=== PATIENT | female | born 1960 | race African-American/Black ===

== ENCOUNTER 2016-04-19 10:07 | Outpatient (CLI) | payer BC | END 2016-04-19 10:08 | disposition home or self-care (01) | DX: Z12.31 Encounter for screening mammogram for malignant neoplasm of breast (principal) ==

== ENCOUNTER 2016-05-01 08:11 | Outpatient (CLI) | payer BC | END 2016-05-01 08:12 | disposition home or self-care (01) | DX: Z12.2 Encounter for screening for malignant neoplasm of respiratory organs (principal); Z72.0 Tobacco use ==

== ENCOUNTER 2016-05-08 10:20 | Outpatient (CLI) | payer BC | END 2016-05-08 10:21 | disposition home or self-care (01) | DX: M17.0 Bilateral primary osteoarthritis of knee (principal) ==

== ENCOUNTER 2016-05-12 07:32 | Day surgery (SDC) | payer BC ==
[2016-05-12] MEDS ORDERED: LACTATED RINGERS 1,000 ML IV ONE (08:18)
[2016-05-12] MEDS ORDERED: SCOPOLAMINE PATCH TOP ONE ×2 (08:19→08:22)
[2016-05-12] MEDS ORDERED: PROPOFOL 200 MG/20 ML VIAL IVP ONE (09:00)
[2016-05-12] MEDS ORDERED: LIDOCAINE 1% 50 ML MDV SUBQ ONE (09:00)
== END 2016-05-12 07:33 | disposition home or self-care (01) ==
PROC: 0DBL8ZX Excision of Transverse Colon, Via Natural or Artificial Opening Endoscopic, Diagnostic (ICD-10-PCS; 2016-05-12)
PROC: 0DBK8ZX Excision of Ascending Colon, Via Natural or Artificial Opening Endoscopic, Diagnostic (ICD-10-PCS; principal; 2016-05-12 09:00)
DX: Z12.11 Encounter for screening for malignant neoplasm of colon (principal); D12.3 Benign neoplasm of transverse colon; Z80.49 Family history of malignant neoplasm of other genital organs; F17.200 Nicotine dependence, unspecified, uncomplicated; I10 Essential (primary) hypertension; K57.30 Diverticulosis of large intestine without perforation or abscess without bleeding; K64.8 Other hemorrhoids; K21.9 Gastro-esophageal reflux disease without esophagitis
CPT/HCPCS: 45380; J3490; J7120

== ENCOUNTER 2018-12-29 13:19 | Outpatient (CLI) | payer BC ==
[~2018-12-29 13:19] MED LIST: ALBUTEROL NEB 2.5 MG/3 ML INH SCH
== END 2018-12-29 13:20 | disposition home or self-care (01) ==
LOC: RT 13:19
PROVIDERS: ATTEND Internal Medicine
DX: R05 Cough (principal); Z72.0 Tobacco use
CPT/HCPCS: 94010

== ENCOUNTER 2019-01-13 13:21 | Outpatient (CLI) | payer BC ==
--- NOTE | 2019-01-13 14:27 | Mammography Report ---
Reason: SCREENING MAMMO Procedure Date: 01/13/2019 Accession Number: [id number] / [id number] Procedure: MGN - Screening Mammo Dig Bilat CPT Code: FULL RESULT: EXAM: Screening Mammo Dig Bilat DATE: 01/13/2019 1:47 PM CLINICAL HISTORY: Screening TECHNIQUE: (B) - Bilateral CC and MLO views were obtained. COMPARISON: 04/19/2016, 11/15/2013 PARENCHYMAL PATTERN: (A) - The breasts demonstrate scattered fibroglandular densities bilaterally. FINDINGS: There is a small spiculated mass in the left breast, posterior one third, approximately 3:00 position. No other focal abnormality. IMPRESSION: Incomplete examination. BI-RADS category 0. RECOMMENDATION: (ADDMU) - Additional views using both Mammography and Ultrasound recommended. BI-RADS CATEGORY: (0) - Incomplete Examination - need additional evaluation. STANDARD QUALIFYING STATEMENTS: 1. This examination was not reviewed with the aid of Computer-Aided Detection (CAD). 2. A negative or benign imaging report should not preclude biopsy if clinically suspicious findings are present. 3. Dense breasts may obscure an underlying neoplasm. 4. This examination was reviewed without the aid of 3D breast imaging (tomosynthesis).
== END 2019-01-13 13:22 | disposition home or self-care (01) ==
LOC: DI.N 13:21
PROVIDERS: ATTEND Internal Medicine
DX: Z12.31 Encounter for screening mammogram for malignant neoplasm of breast (principal); R92.8 Other abnormal and inconclusive findings on diagnostic imaging of breast
CPT/HCPCS: 77067

== ENCOUNTER 2019-01-20 12:14 | Outpatient (CLI) | payer BC ==
--- NOTE | 2019-01-20 16:21 | Ultrasound Report ---
Reason: ABNORMAL MAMMO LT BREAST Procedure Date: 01/20/2019 Accession Number: [id number] / [id number] Procedure: US - Breast Unilateral Limited CPT Code: FULL RESULT: EXAM: Diagnostic Dig LT, Breast Unilateral Limited DATE: 01/20/2019 12:56 PM CLINICAL HISTORY: Recall from recent screening for left breast finding. No reported personal or family history of breast cancer. TECHNIQUE: (L) - Left CC, ML and MLO views were obtained. Real-time targeted ultrasound was performed. [employer] images were stored. COMPARISON: 01/13/2019 through 11/15/2013 PARENCHYMAL PATTERN: (A) - The breasts demonstrate scattered fibroglandular densities bilaterally. FINDINGS: Left breast: Additional images confirm a 5 mm irregular mass in the posterior lower outer quadrant, corresponding to finding recalled from screening. No suspicious calcifications or areas of distortion. Targeted ultrasound at 4:00 2 cm from the nipple shows the sonographic correlate as an irregular hypoechoic, avascular mass with angular margins measuring 5 x 3 x 3 mm. Survey of the axilla shows normal morphology lymph nodes. IMPRESSION: Suspicious findings. BI-RADS category 4. 5 mm indeterminate mass 4:00 10 cm from the nipple, left breast. RECOMMENDATION: (BIOPSY) - ultrasound-guided biopsy and marker placement is recommended. Biopsy scheduling was facilitated the time of this imaging appointment. BI-RADS CATEGORY: (4) - Suspicious. STANDARD QUALIFYING STATEMENTS: 1. This examination was not reviewed with the aid of Computer-Aided Detection (CAD). 2. A negative or benign imaging report should not preclude biopsy if clinically suspicious findings are present. 3. Dense breasts may obscure an underlying neoplasm. 4. This examination was reviewed with the aid of 3D breast imaging (tomosynthesis).
== END 2019-01-20 12:15 | disposition home or self-care (01) ==
LOC: DI 12:14
PROVIDERS: ATTEND Internal Medicine
DX: R92.8 Other abnormal and inconclusive findings on diagnostic imaging of breast (principal)
CPT/HCPCS: 76642

== ENCOUNTER 2019-01-27 09:37 | Outpatient (CLI) | payer BC ==
[2019-01-27] MEDS ORDERED: BUPIVACAINE 0.5%-EPI 1:200000 PF 10 ML VIAL ONE (09:53)
[2019-01-27] MEDS ORDERED: BUFFERED LIDOCAINE 10 ML SYRINGE ONE (09:53)
[2019-01-27] MEDS ORDERED: BUFFERED LIDOCAINE 10 ML SYRINGE IU ONE (12:39)
[2019-01-27] MEDS ORDERED: BUPIVACAINE 0.5%-EPI 1:200000 PF 10 ML VIAL SUBQ ONE (12:39)
--- NOTE | 2019-01-27 14:52 | Ultrasound Report ---
Reason: L BREAST NODULE Procedure Date: 01/27/2019 Accession Number: [id number] / [id number] Procedure: US - Biopsy Breast Core CPT Code: FULL RESULT: EXAM: Biopsy Breast Core DATE: 01/27/2019 11:28 AM CLINICAL HISTORY: L BREAST NODULE COMPARISON: PROCEDURE: Ultrasound-guided needle biopsy left breast mass. CLINICAL DATA: Targeted mass measuring 5 mm with irregular margins in the 4 o'clock axis of the left breast. Informed consent was obtained. Using standard aseptic technique, both 1% buffered lidocaine was injected into the left breast for local anesthesia. A small ted was made in the skin with a #11 blade. A 12-gauge Super Clean Jobsite vacuum-assisted device was used to obtain 3 specimens. A specialized biopsy marker clip was placed into the biopsy cavity under ultrasound guidance. The patient was taken to separate mammography machine and a two-view digital mammography was performed to verify the clip placement and any complications. The mammography showed concordant clip placement. The wound was dressed and ice applied. The patient was observed for approximately 15 minutes, then was discharged from diagnostic imaging Department in good condition following instructions on wound care and obtaining biopsy results. The patient is scheduled to receive the biopsy results from the referring physician. The tissue was sent for histologic analysis. IMPRESSION: Ultrasound-guided biopsy of the left breast. AN ADDENDUM WILL BE MADE TO THIS REPORT WHEN PATHOLOGY IS REVIEWED TO ESTABLISH CONCORDANCE. RADIA
== END 2019-01-27 09:38 | disposition home or self-care (01) ==
LOC: DI 09:37
PROVIDERS: ATTEND Internal Medicine
DX: D24.2 Benign neoplasm of left breast (principal)
CPT/HCPCS: 19083

== ENCOUNTER 2020-05-17 10:14 | Outpatient (CLI) | payer BC ==
--- NOTE | 2020-05-18 08:27 | Mammography Report ---
BILATERAL DIGITAL SCREENING MAMMOGRAM 3D/2D: 05/17/2020 CLINICAL: Routine screening. Comparison is made to exams dated: 01/27/2019 mammogram, 01/20/2019 mammogram, 01/13/2019 mammogram, a nd 04/19/2016 mammogram - [facility]. There are scattered fibroglandular elements in both breasts. There is a biopsy clip in the left breast. No significant masses, calcifications, or other findings are seen in either breast. There has been no significant interval change. IMPRESSION: NEGATIVE There is no mammographic evidence of malignancy. A 1 year screening mammogram is recommended. This exam was interpreted at Station ID: [id number]. NOTE: For mammograms, a report in lay terms will be sent to the patient. Approximately 15% of breast malignancies will not be visualized mammographically. In the management of a palpable breast mass, a negative mammogram must not discourage biopsy of a clinically suspicious lesion. Electronically Signed By: Cabrera maurer/gt:05/17/2020 14:45:35 ACR BI-RADS Category 1: Negative 3341F PARENCHYMAL PATTERN: (A) - The breast(s) demonstrate(s) scattered fibroglandular densities. BI-RADS CATEGORY: (1) - 1 RECOMMENDATION: (ANNUAL) - Recommend routine annual screening mammography. [id number] 1 year screening LATERALITY: (B)
== END 2020-05-17 10:15 | disposition home or self-care (01) ==
LOC: DI.N 10:14
PROVIDERS: ATTEND Physician Assistant
DX: Z12.31 Encounter for screening mammogram for malignant neoplasm of breast (principal)

== ENCOUNTER 2020-07-27 08:38 | Emergency (ER) | payer OTHER, BC ==
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
[2020-07-27] MEDS ORDERED: methocarbamoL 500 MG TABLET PO STA (09:42)
[2020-07-27] MEDS ORDERED: IBUPROFEN 600 MG TABLET PO STA (09:42)
[2020-07-27] MEDS ORDERED: HYDROcod/ACETAM 5/325 MG TABLET PO STA (09:42)
--- OUTSIDE RECORDS SUMMARY | 2020-07-27 09:42 | EXTERNAL MEDICAL SUMMARY RPT | Continuity of Care Document ---
:1960 Demographics Phone Unavailable Preferred Language Unknown Marital Status Unknown Yazidi Affiliation Unknown Race Unknown Ethnic Group Unknown Author Organization [facility] Address [address] [place] [address] Phone Social History date description facility [phone]
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
[2020-07-27] MEDS ORDERED: ONDANSETRON ODT 4 MG TABLET TL STA (10:58)
[2020-07-27 11:04] VITALS: BP 136/97
== END 2020-07-27 11:13 | disposition home or self-care (01) ==
LOC: ED 08:38
DX: S16.1XXA Strain of muscle, fascia and tendon at neck level, initial encounter (principal); S29.012A Strain of muscle and tendon of back wall of thorax, initial encounter; V43.52XA Car driver injured in collision with other type car in traffic accident, initial encounter; Y92.411 Interstate highway as the place of occurrence of the external cause; M51.34 Other intervertebral disc degeneration, thoracic region; I10 Essential (primary) hypertension; F17.200 Nicotine dependence, unspecified, uncomplicated
CPT/HCPCS: 72125; 72128; 99284; A9270; Q0162